=== PATIENT | male | born 1960 | race Caucasian/White ===

== ENCOUNTER 2018-01-07 14:30 | Outpatient (CLI) | payer MEDICARE ==
--- NOTE | 2018-01-07 16:09 | RAD ---
RIGHT KNEE FOUR VIEWS: 01/07/18 HISTORY: Joint pain. There are mild arthritic changes of the medial, lateral and patellofemoral compartments. No joint eff usion or fracture. IMPRESSION: Mild osteoarthritic changes of the knee. POS: ANGELITO
== END 2018-01-07 14:31 | disposition home or self-care (01) ==
LOC: NAV RAD 14:30
PROVIDERS: ATTEND Family Medicine
DX: M25.561 Pain in right knee (principal)

== ENCOUNTER 2019-09-02 12:20 | Outpatient (CLI) | payer MEDICARE ==
--- NOTE | 2019-09-02 12:43 | RAD ---
EXAM: Two views chest PROVIDED CLINICAL HISTORY: Shortness of breath COMPARISON: None FINDINGS: Cardiac silhouette and bronchovascular markings are accentuated by shallow depth of inspiration and p ortable technique of the study. No definite consolidation or pleural fluid is seen. No other interval change IMPRESSION: No acute cardiopulmonary process.
== END 2019-09-02 12:21 | disposition home or self-care (01) ==
LOC: NAV RAD 12:20
PROVIDERS: ATTEND Student in an Organized Health Care Education/Training Program
DX: R06.02 Shortness of breath (principal)
CPT/HCPCS: 71046

== ENCOUNTER 2019-09-27 15:16 | Outpatient (CLI) | payer MEDICARE ==
--- NOTE | 2019-09-27 15:39 | RAD ---
EXAM: 5 views of the cervical spine HISTORY: Neck pain COMPARISON: None FINDINGS: AP, lateral, flexion/extension, and open mouth odontoid views of the cervical spine shows n ormal height and alignment of the vertebral bodies and intervertebral discs without fracture or subluxation. Posterior facet arthrosis is seen in the upper cervical spine. No prevertebral soft tiss ue swelling is seen. Alignment is unchanged with flexion and extension. IMPRESSION: Mild degenerative changes of the cervical spine without acute osseous abnormality.
== END 2019-09-27 15:17 | disposition home or self-care (01) ==
LOC: NAV RAD 15:16
PROVIDERS: ATTEND Family Medicine
DX: M54.2 Cervicalgia (principal); G89.29 Other chronic pain; M47.812 Spondylosis without myelopathy or radiculopathy, cervical region
CPT/HCPCS: 72050

== ENCOUNTER 2019-12-10 20:29 | Emergency (ER) | payer MEDICARE ==
[2019-12-10 21:19] LABS: #Basophils 0.1 thou/uL (0.0-0.2); #Eosinphils 0.2 thou/uL (0.0-0.7); #Lymphocytes 1.6 thou/uL (1.20-3.40); #Monocytes 0.6 thou/uL (0.11-0.59); #Neutrophils 4.9 thou/uL (1.40-6.50); %Basophils 1.2 % (0.0-1.0); %Eosinophils 2.5 % (0.0-10.0); %Lymphocytes 22.1 % (21.0-51.0); %Monocytes 8.6 % (0.0-10.0); %Neutrophils 65.6 % (42.0-75.0); Hemoglobin 14.4 g/dL (14.0-18.0); Mean Corpuscular HGB CONC 31.6 g/dL (32.0-36.0); Mean Corpuscular Hemoglobin 30.1 pg (27.0-31.0); Mean Corpuscular Volume 95.2 fL (78.0-98.0); Mean Platelet Volume 7.5 fL (7.4-10.4); Platelet Count 190 thou/uL (130-400); RBC Distribution Width 11.7 % (11.5-14.5); Red Blood Cell (RBC) Count 4.79 mill/uL (4.70-6.10); White Blood Cell (WBC) Count 7.4 thou/uL (4.8-10.8)
--- NOTE | 2019-12-10 21:34 | RAD ---
Left foot 3 views HISTORY: Pain. FINDINGS: Lisfranc joint alignment is anatomic. Plantar arch is maintained. Soft tissue swelling is evident about the forefoot. Mild osteoarthritic changes throughout the foot. Old healed fracture of the fifth metatarsal. Enthesophyte arises from the plantar origin at the inferior aspect of the calcaneus. IMPRESSION : Soft tissue swelling. No acute osseous abnormalities are demonstrated. Old fifth metatarsal fracture. Plantar heel spur.
[2019-12-10 21:40] LABS: ALT (SGPT) 29 U/L (8-55); AST (SGOT) 22 U/L (5-34); Albumin 4.1 g/dL (3.5-5.0); Alkaline Phosphatase 67 U/L (40-110); Anion Gap 14 mmol/L (10-20); BUN (Urea Nitrogen) 14 mg/dL (8.4-25.7); Bilirubin, Total 0.4 mg/dL (0.2-1.2); CRP (Inflammatory) Less than 0.50 mg/dL (= or < 0.5); Calc. Creatinine Clearance 0 mL/min (70-130); Calcium 9.4 mg/dL (7.8-10.44); Carbon Dioxide 29 mmol/L (22-29); Chloride 100 mmol/L (98-107); Estimated GFR-MDRD Greater than 90; Globulin 2.9 g/dL (2.4-3.5); Glucose 111 mg/dL (70-105); Sodium 139 mmol/L (136-145)
== END 2019-12-10 22:00 | disposition home or self-care (01) ==
LOC: NAV ERS 20:29
DX: M79.672 Pain in left foot (principal); G89.29 Other chronic pain; G47.00 Insomnia, unspecified; G47.30 Sleep apnea, unspecified; E78.5 Hyperlipidemia, unspecified; I10 Essential (primary) hypertension; F32.9 Major depressive disorder, single episode, unspecified; E66.9 Obesity, unspecified; Z79.82 Long term (current) use of aspirin; Z79.891 Long term (current) use of opiate analgesic; Z79.899 Other long term (current) drug therapy
CPT/HCPCS: 80053; 83605; 85025; 86140; 87040

== ENCOUNTER 2020-01-27 17:00 | Inpatient (IN) | payer MEDICARE ==
[2020-01-27 17:17] VITALS: BMI 41.0
[2020-01-27] MEDS ORDERED: Ventolin HFA Inhaler 60 PUFF INHALER INH PRN (17:23)
[2020-01-27] MEDS ORDERED: Ondansetron ODT 4 MG TAB PO PRN (17:25)
[2020-01-27] MEDS: HYDROcodone/Acetaminophen 7.5/325 mg Tablet PO PRN (18:06)
[2020-01-27] MEDS: Atorvastatin Calcium 10 MG TAB PO SCH (20:26)
[2020-01-27] MEDS: Citalopram 20 MG TAB PO SCH (20:26)
[2020-01-27] MEDS: Tamsulosin HCl 0.4 MG CAP PO SCH (20:26)
--- NOTE | 2020-01-27 22:52 | HP ---
CHIEF COMPLAINT: Deconditioning. HISTORY OF PRESENT ILLNESS: The patient is a 59-year-old male, who was transferred to [facility] for rehabilitation following a hospital stay for deconditioning and falls. The patient has known cervical spinal stenosis and is scheduled for surgery with Dr. Randhawa on February 10. The patient has a past medical history of opioid dependence, hyperlipidemia, depression, hypertension, obstructive sleep apnea, and obesity hypoventilation syndrome. The patient was examined by Neurosurgery in the hospital stay and they opted to proceed with surgery as scheduled on the , we will move it up to resume. The patient has been having worsening pain and states that it is difficult to move this head. His family was not comfortable taking care of him at home as he was falling multiple times and will become confused, notes the pain was increased. PAST MEDICAL HISTORY: Spinal stenosis, opioid dependence, hypertension, depression, hyperlipidemia, ELODIA, GERD, and osteoarthritis. ALLERGIES: NO KNOWN DRUG ALLERGIES. MEDICATIONS: 1. Simvastatin 20 mg p.o. at bedtime. 2. Ventolin HFA 2 puffs q.4 hours as needed. 3. Celexa 20 mg, take two tablets p.o. daily. 4. Loomis 7.5/325 one p.o. t.i.d. 5. Omeprazole 40 mg p.o. daily. 6. Diclofenac 75 mg p.o. b.i.d. 7. Tamsulosin 0.4 mg p.o. daily. 8. Metoprolol ER 50 mg p.o. daily. 9. Losartan 25 mg p.o. daily. 10. Aspirin 81 mg p.o. daily. PAST SURGICAL HISTORY: Cholecystectomy, knee arthroscopy, and back surgery. FAMILY HISTORY: Mother with diabetes. SOCIAL HISTORY: The patient is a former smoker. He drinks alcohol on occasion. REVIEW OF SYSTEMS: GENERAL: Negative for fever and chills. EYES: Negative for vision changes or eye pain. HEENT: Negative for sore throat, rhinorrhea, or nasal congestion. LUNGS: Negative for cough and wheezing. CARDIOVASCULAR: Negative for chest pain, palpitations, or orthopnea. GI: Negative for nausea, vomiting, or diarrhea. : Negative for dysuria and polyuria. The patient has had some episodes of incontinence over the past month. MUSCULOSKELETAL: Positive for neck and back pain with pain radiating down the arms and weakness of the upper extremities. EXTREMITIES: The patient has had increased lower extremity edema. SKIN: The patient has had some dry skin on the face, but no other rashes or lesions noted. NEUROLOGIC: The patient endorses tingling and numbness in the upper extremities. No syncope. PSYCHIATRIC: The patient denies anxiety, but endorses depression. PHYSICAL EXAMINATION: VITAL SIGNS: Temperature 98.5, pulse 74, respiration rate 20, O2 saturation 92% on room air, and blood pressure 130/60. GENERAL: The patient is awake, alert, and oriented, and in no acute distress. EYES: Pupils are equal, round, and reactive to light and accommodation. Extraocular muscles intact. HEENT: Oropharynx and nasopharynx without erythema or exudate. NECK: Supple without lymphadenopathy, thyromegaly, or bruits. CARDIOVASCULAR: Regular rate and rhythm without murmurs, gallops, or rubs. LUNGS: Clear to auscultation bilaterally without wheezing or rhonchi. ABDOMEN: Soft, nontender, and nondistended. Bowel sounds present. EXTREMITIES: No clubbing or cyanosis. The patient has 1 to 2+ pitting edema in bilateral lower extremities up to the knees. NEUROLOGIC: Cranial nerves 2 through 12 are grossly intact. Left upper extremity strength is a 4/5. Right upper extremity 5/5. Bilateral lower extremities are 5/5. PSYCHIATRIC: The patient displays somewhat flat affect with poor eye contact. ASSESSMENT AND PLAN: 1. Generalized deconditioning: The patient will have PT and OT work with him. 2. Cervical stenosis: The patient has an upper extremity weakness, just generalized weakness as he has not been moving around much at home. We will proceed with therapy to try to help him gain strength before surgery scheduled for February 10. 3. Hypertension: Continue current medications and adjust as needed. 4. Gastroesophageal reflux disease. Continue proton pump inhibitors. 5. Depression. Continue citalopram. 6. Hyperlipidemia. Continue simvastatin. 7. Obstructive sleep apnea with obesity hypoventilation syndrome: The patient has a followup appointment with Dr. Swartz we think next week. We will clarify this with the patient's family and help to arrange for transportation. 8. Chronic venous stasis: Monitor lower extremity edema. This does appear to be new and the patient may need a dose of Lasix. 9. We will get a CBC and a CMP in the morning. 10. Chronic pain: I am restarting the patient's opioids and monitor for constipation. Job ID: [id number]
[2020-01-28 05:54] LABS: #Basophils 0.1 thou/uL (0.0-0.2); #Eosinphils 0.3 thou/uL (0.0-0.7); #Lymphocytes 1.8 thou/uL (1.20-3.40); #Monocytes 0.6 thou/uL (0.11-0.59); #Neutrophils 2.9 thou/uL (1.40-6.50); %Basophils 2.3 % (0.0-1.0); %Eosinophils 4.5 % (0.0-10.0); %Lymphocytes 32.4 % (21.0-51.0); %Monocytes 9.8 % (0.0-10.0); Hemoglobin 12.4 g/dL (14.0-18.0); Mean Corpuscular HGB CONC 30.8 g/dL (32.0-36.0); Mean Corpuscular Hemoglobin 29.2 pg (27.0-31.0); Mean Corpuscular Volume 94.7 fL (78.0-98.0); Mean Platelet Volume 8.4 fL (7.4-10.4); Platelet Count 169 thou/uL (130-400); RBC Distribution Width 11.7 % (11.5-14.5); Red Blood Cell (RBC) Count 4.24 mill/uL (4.70-6.10); White Blood Cell (WBC) Count 5.7 thou/uL (4.8-10.8)
[2020-01-28 06:10] LABS: ALT (SGPT) 29 U/L (8-55); AST (SGOT) 28 U/L (5-34); Albumin 3.6 g/dL (3.5-5.0); Alkaline Phosphatase 61 U/L (40-110); Anion Gap 12 mmol/L (10-20); BUN (Urea Nitrogen) 14 mg/dL (8.4-25.7); Bilirubin, Total 0.3 mg/dL (0.2-1.2); Calc. Creatinine Clearance 192 mL/min (70-130); Calcium 9.1 mg/dL (7.8-10.44); Carbon Dioxide 33 mmol/L (22-29); Chloride 97 mmol/L (98-107); Estimated GFR-MDRD Greater than 90; Globulin 2.6 g/dL (2.4-3.5); Glucose 98 mg/dL (70-105); Potassium 4.2 mmol/L (3.5-5.1); Protein, Total 6.2 g/dL (6.0-8.3); Sodium 138 mmol/L (136-145)
[2020-01-28] MEDS: Polyethylene Glycol 3350 17 GM Packet PO SCH (08:03)
[2020-01-28] MEDS: Citalopram 20 MG TAB PO SCH ×2 (08:04→20:22)
[2020-01-28] MEDS: HYDROcodone/Acetaminophen 7.5/325 mg Tablet PO PRN (08:04)
[2020-01-28] MEDS: Losartan 25 MG TAB PO SCH (08:06)
[2020-01-28] MEDS: Aspirin 81 mg Enteric Coated Tablet PO SCH (08:06)
--- NOTE | 2020-01-28 09:27 | PRG ---
DATE OF SERVICE: 01/28/2020 SUBJECTIVE: The patient is a 59-year-old male who is at [facility] for rehabilitation following hospital stay at [facility] for weakness. The patient has known cervical stenosis, and he has been having increasing pain in his neck and is scheduled for surgery on February 10. The patient is sitting up in a recliner, and states that he did not sleep at all last night because we took away his BiPAP. I tried to explain that the BiPAP machine was only able to be used in [place] and the doctors taking care of him in [place] did not think that he needed his BiPAP on discharge. The [facility] is not capable of providing him with BiPAP. He is supposed to have an appointment with Dr. Swartz, we think next week. The patient apparently slept in the recliner all night, because if he stays even at home, he feels like he cannot breathe when he lies flat. The night nurse apparently applied oxygen up to 4 L last night per the patient's request. OBJECTIVE: VITAL SIGNS: Temperature 98.3, pulse 80, respiratory rate 20, O2 saturation 96% on room air, blood pressure 114/52. GENERAL: The patient is awake and alert, in no acute distress. CARDIOVASCULAR: Regular rate and rhythm without murmurs, gallops, or rubs. LUNGS: Clear to auscultation bilaterally without wheezing or rhonchi. ABDOMEN: Soft, nontender, nondistended. Bowel sounds present. EXTREMITIES: There is 1+ pitting edema in bilateral lower extremities. PSYCHIATRIC: The patient displays appropriate mood and affect. LABORATORY DATA: CBC: WBCs 5.7, hemoglobin 12.4, hematocrit 40.1, platelet count 169. CMP: Sodium 138, potassium 4.2, chloride 97, bicarb 33, BUN 14, creatinine 0.75, glucose 98, calcium 9.1, total bilirubin 0.3, AST 28, ALT 29, alkaline phosphatase 61, total protein 6.2, albumin 3.6. ASSESSMENT AND PLAN: 1. Cervical spinal stenosis with degenerative disk disease. The patient is scheduled for surgery on February 10. We will continue Otis for pain control. The patient will begin working with PT and OT to try to help improve strength. 2. Obstructive sleep apnea with obesity hypoventilation syndrome. The patient's O2 sats have been stable. I tried to explain to the patient that we should not use oxygen if we do not need oxygen as this can cause its own set of problems. The patient's day nurse is going to pass along that recommendation to the night team. 3. Hypertension, well controlled. 4. Generalized deconditioning. Therapy as mentioned above. 5. Insomnia. We are trying to avoid any sedating agents like Ambien as this can affect the patient's breathing at night. 6. Depression. Continue selective serotonin reuptake inhibitors. Job ID: [id number]
[2020-01-28] MEDS: Atorvastatin Calcium 10 MG TAB PO SCH (20:22)
[2020-01-28] MEDS: Tamsulosin HCl 0.4 MG CAP PO SCH (20:22)
[2020-01-29] MEDS: HYDROcodone/Acetaminophen 7.5/325 mg Tablet PO PRN ×3 (00:16→20:34)
[2020-01-29] MEDS: Losartan 25 MG TAB PO SCH (09:42)
[2020-01-29] MEDS: Aspirin 81 mg Enteric Coated Tablet PO SCH (09:43)
[2020-01-29] MEDS: Citalopram 20 MG TAB PO SCH ×2 (09:43→20:34)
[2020-01-29] MEDS: Polyethylene Glycol 3350 17 GM Packet PO SCH (09:43)
[2020-01-29] MEDS ORDERED: Melatonin 3 MG TAB PO PRN (14:54)
--- NOTE | 2020-01-29 15:12 | PRG ---
DATE OF SERVICE: 01/29/2020 SUBJECTIVE: The patient is a 59-year-old male, undergoing rehabilitation following multiple falls. The patient has a history of cervical stenosis along with cervical disk disease and is due to have surgery on February 10. The patient states that he continues to have difficulty sleeping at night. He was able to work with Therapy yesterday and states that he was able ambulate around the nurses' station. OBJECTIVE: VITAL SIGNS: Temperature 98.3, pulse 80, respiration rate 23, O2 saturation 96% on room air, blood pressure 133/59. GENERAL: The patient is awake, alert, oriented, in no acute distress. CARDIOVASCULAR: Regular rate and rhythm without murmurs, gallops, or rubs. LUNGS: Clear to auscultation bilaterally without wheezing or rhonchi. ABDOMEN: Soft, nontender to palpation. EXTREMITIES: There is no clubbing or cyanosis, but the patient does have stable 1+ edema in bilateral lower extremities. PSYCHIATRIC: The patient displays appropriate mood and affect. ASSESSMENT AND PLAN: 1. Cervical spinal stenosis with cervical disk disease: The patient will continue PT and OT as he has been getting some weakness and repeated falls at home. He is scheduled for surgery on February 10. 2. Hypertension: Blood pressure is controlled. 3. Generalized weakness and deconditioning: Therapy as mentioned above. 4. Osteoarthritis: We will stop the patient's Voltaren, as he will have to be off it for about 10 days prior to surgery. This medication is not able to be obtained here anyway. 5. Insomnia: We will add melatonin at night to see if this helps. We are trying to limit anything that could decrease his respiratory drive. 6. Obstructive sleep apnea with obesity hypoventilation: My understanding, the patient has a followup appointment with Dr. Swartz next week. We will need to clarify this with the nursing staff and help to arrange for him to get to that appointment, if that is the case. Job ID: [id number]
[2020-01-29] MEDS: Tamsulosin HCl 0.4 MG CAP PO SCH (20:34)
[2020-01-29] MEDS: Atorvastatin Calcium 10 MG TAB PO SCH (20:34)
[2020-01-30] MEDS: Citalopram 20 MG TAB PO SCH ×2 (08:57→20:37)
[2020-01-30] MEDS: HYDROcodone/Acetaminophen 7.5/325 mg Tablet PO PRN ×2 (08:57→16:28)
[2020-01-30] MEDS: Aspirin 81 mg Enteric Coated Tablet PO SCH (08:57)
[2020-01-30] MEDS: Losartan 25 MG TAB PO SCH (08:57)
[2020-01-30] MEDS: Polyethylene Glycol 3350 17 GM Packet PO SCH (09:02)
[2020-01-30] MEDS: Atorvastatin Calcium 10 MG TAB PO SCH (20:37)
[2020-01-30] MEDS: Tamsulosin HCl 0.4 MG CAP PO SCH (20:38)
[2020-01-31] MEDS: HYDROcodone/Acetaminophen 7.5/325 mg Tablet PO PRN ×3 (00:59→23:02)
[2020-01-31] MEDS: Aspirin 81 mg Enteric Coated Tablet PO SCH (08:46)
[2020-01-31] MEDS: Losartan 25 MG TAB PO SCH (08:46)
[2020-01-31] MEDS: Citalopram 20 MG TAB PO SCH ×2 (08:47→20:19)
[2020-01-31] MEDS: Polyethylene Glycol 3350 17 GM Packet PO SCH (08:48)
--- NOTE | 2020-01-31 18:19 | PRG ---
DATE OF SERVICE: 01/31/2020 SUBJECTIVE: The patient is a 59-year-old male, who is undergoing rehabilitation at [place] following multiple falls and weakness, requiring hospitalization in [place]. The patient is due to have back surgery with Dr. Randhawa on 02/10. The patient pretty much spends all of his day and night in the recliner, that is in his room, but after speaking with therapy staff, he is able to get up and ambulate fairly well when they work with him. The patient states that he was able to sleep a little bit better overnight. This morning, his primary concern is that the only thing on his breakfast tray was eggs and he needs more to eat than that, so the nurse brought him some cereal and applesauce. OBJECTIVE: VITAL SIGNS: Temp 98.1, pulse 74, respiration rate 18, O2 sat 94% on room air, and blood pressure 127/60. GENERAL: The patient is awake, alert, oriented, and in no acute distress. CARDIOVASCULAR: Regular rate and rhythm without murmurs, gallops or rubs. LUNGS: Clear to auscultation bilaterally without wheezing or rhonchi. ABDOMEN: Soft, nontender, and nondistended. Bowel sounds present. The patient is obese. EXTREMITIES: There is no clubbing or cyanosis. The patient does have 1+ pitting edema in bilateral lower extremities. PSYCHIATRIC: The patient displays appropriate mood and affect. ASSESSMENT AND PLAN: 1. Cervical spinal stenosis with cervical disk disease: The patient will continue therapy. I think there is a care plan meeting tomorrow, and if the patient is progressing well, he likely will be able to be discharged before surgery date. 2. Hypertension: Blood pressure is controlled. No change to medications. 3. Generalized weakness and deconditioning: Continue therapy as mentioned above. 4. Insomnia: Continue melatonin. 5. Obstructive sleep apnea with obesity hypoventilation. The patient is supposed to have a followup on Friday. We need to clarify this to make certain if the appointment is still valid as the patient's has told Dr. Swartz that he is in the hospital, but he is actually a skilled patient, who should be able to go to the appointment. Job ID: [id number]
[2020-01-31] MEDS: Atorvastatin Calcium 10 MG TAB PO SCH (20:19)
[2020-01-31] MEDS: Tamsulosin HCl 0.4 MG CAP PO SCH (20:19)
[2020-02-01] MEDS: HYDROcodone/Acetaminophen 7.5/325 mg Tablet PO PRN ×2 (08:18→15:32)
[2020-02-01] MEDS: Losartan 25 MG TAB PO SCH (08:19)
[2020-02-01] MEDS: Aspirin 81 mg Enteric Coated Tablet PO SCH (08:19)
[2020-02-01] MEDS: Citalopram 20 MG TAB PO SCH ×2 (08:20→21:22)
[2020-02-01] MEDS: Polyethylene Glycol 3350 17 GM Packet PO SCH (08:20)
--- NOTE | 2020-02-01 10:52 | PRG ---
DATE OF SERVICE: 02/01/2020 SUBJECTIVE: The patient is a 59-year-old male, undergoing rehabilitation at [facility] in preparation for a neck surgery. The patient states that he was able to sleep a little bit better last night, but it was intermittent. The patient states that this morning, he seems to have increased neck pain and he is due for pain pill. The patient continues to work with therapy. OBJECTIVE: VITAL SIGNS: Temperature 98.1, pulse 78, respiration rate 18, O2 saturation 92% on room air, blood pressure 133/76. GENERAL: The patient is awake, alert, oriented, in no acute distress. CARDIOVASCULAR: Regular rate and rhythm without murmurs, gallops, or rubs. LUNGS: Clear to auscultation bilaterally without wheezing or rhonchi. ABDOMEN: Soft, nontender, nondistended. Bowel sounds present. EXTREMITIES: There is no clubbing or cyanosis. The patient does have 1+ lower extremity edema to the knees, which is stable. PSYCHIATRIC: The patient displays an appropriate mood and affect. ASSESSMENT AND PLAN: 1. Cervical stenosis with cervical disk disease: The patient is scheduled for surgery on February 10. We will continue pain medications as currently prescribed. 2. Generalized weakness and deconditioning: Continue PT and OT. I do believe there is a care plan meeting today to discuss the patient's progress and whether he would be able to discharge home before surgery or wait till the . 3. Hypertension: Continue current medications. 4. Obstructive sleep apnea: We still have not received any orders from Dr. Swartz's office regarding settings for CPAP. 5. Osteoarthritis: Avoiding NSAIDs as we were about 10 days prior to surgery. Job ID: [id number]
[2020-02-01] MEDS: Atorvastatin Calcium 10 MG TAB PO SCH (21:22)
[2020-02-01] MEDS: Tamsulosin HCl 0.4 MG CAP PO SCH (21:22)
[2020-02-02] MEDS: Polyethylene Glycol 3350 17 GM Packet PO SCH (08:44)
[2020-02-02] MEDS: Aspirin 81 mg Enteric Coated Tablet PO SCH (08:45)
[2020-02-02] MEDS: Losartan 25 MG TAB PO SCH (08:45)
[2020-02-02] MEDS: Citalopram 20 MG TAB PO SCH ×2 (08:45→20:52)
[2020-02-02] MEDS: HYDROcodone/Acetaminophen 7.5/325 mg Tablet PO PRN ×2 (08:47→15:20)
--- NOTE | 2020-02-02 09:28 | PRG ---
DATE OF SERVICE: 02/02/2020 SUBJECTIVE: The patient is a 59-year-old male undergoing rehabilitation following hospital stay for repeated falls. The therapy staff plans to discharge the patient from their caseload on Friday. He will be moving closer to discharge at that time. The patient only required two doses of pain medication yesterday. OBJECTIVE: VITAL SIGNS: Temperature 97.4, pulse 73, respiration rate 16, O2 saturation 95% on room air, and blood pressure 141/78. GENERAL: The patient is awake, alert, oriented, in no acute distress. CARDIOVASCULAR: Regular rate and rhythm without murmurs, gallops, or rubs. LUNGS: Clear to auscultation bilaterally without wheezing or rhonchi. ABDOMEN: Soft, nontender, nondistended. Bowel sounds present. EXTREMITIES: There is no clubbing or cyanosis. The patient does have stable 1+ edema in bilateral lower extremities. PSYCHIATRIC: The patient displays appropriate mood and affect. ASSESSMENT AND PLAN: 1. Cervical stenosis with cervical disk disease: The patient will continue with therapy, but they do plan on discharging him from therapy on Friday. We will discuss with the patient about discharging from the hospital on Friday. I spoke with the patient's nurse who is going to contact the neurosurgeon's office today to make certain that we get whatever labs need to be done for the patient, anything else that we needs to do preop. 2. Obstructive sleep apnea: We received orders from the ironworker for CPAP. These orders were placed as an outpatient to try to get that approved. 3. Hypertension: Blood pressure stable. No change to medications. 4. Generalized deconditioning: The patient's strength has improved. The primary issue that we have now is he is impulsive and does not follow safety cues that had been repeatedly taught to the patient. 5. Osteoarthritis: Continue activity as tolerated. The patient is avoiding NSAIDs prior to surgery. 6. Disposition: Planning for discharge on Friday at this time. Job ID: [id number]
[2020-02-02] MEDS: Tamsulosin HCl 0.4 MG CAP PO SCH (20:52)
[2020-02-02] MEDS: Atorvastatin Calcium 10 MG TAB PO SCH (20:52)
[2020-02-03] MEDS: HYDROcodone/Acetaminophen 7.5/325 mg Tablet PO PRN ×2 (08:05→20:28)
[2020-02-03] MEDS: Citalopram 20 MG TAB PO SCH ×2 (08:07→20:29)
[2020-02-03] MEDS: Losartan 25 MG TAB PO SCH (08:07)
[2020-02-03] MEDS: Aspirin 81 mg Enteric Coated Tablet PO SCH (08:07)
[2020-02-03] MEDS: Polyethylene Glycol 3350 17 GM Packet PO SCH (08:08)
--- NOTE | 2020-02-03 08:34 | PRG ---
DATE OF SERVICE: 02/03/2020 SUBJECTIVE: The patient is a 59-year-old male, undergoing rehabilitation at [place]. The patient states that he does not sleep well overnight, states that he has had some hip pain. The patient also continues to have pain in his neck, and when therapy tried to get him to go down to the gym, he did not agree to this yesterday. OBJECTIVE: VITAL SIGNS: Temperature 96.8, pulse 68, respiratory rate 20, O2 sat 95% on room air, and blood pressure 148/60. GENERAL: The patient is awake, alert, oriented, in no acute distress. CARDIOVASCULAR: Regular rate and rhythm without murmurs, gallops or rubs. LUNGS: Clear to auscultation bilaterally without wheezing or rhonchi. ABDOMEN: Soft, obese, and nontender to palpation. EXTREMITIES: There is no clubbing or cyanosis. The patient does have 1+ bilateral lower extremity pitting edema. PSYCHIATRIC: The patient displays appropriate mood and affect. ASSESSMENT AND PLAN: 1. Cervical spinal stenosis with cervical disk disease: The patient will be discharged to physical therapy tomorrow, and therefore, discharged from the hospital tomorrow. Notes in the chart indicate that the hospital will contact him to set up preop appointment. 2. Hypertension, well controlled. 3. Chronic pain: We will refill the patient's [place] so that he can take it up on discharge. 4. Osteoarthritis: The patient is avoiding NSAIDs 10 days prior to surgery and aspirin is due to stop tomorrow. 5. Generalized deconditioning: The patient has had some benefit from therapy. He will be having next surgery next week and will likely transfer to inpatient rehab after the surgery. Job ID: [id number]
[2020-02-03] MEDS: Tamsulosin HCl 0.4 MG CAP PO SCH (20:29)
[2020-02-03] MEDS: Atorvastatin Calcium 10 MG TAB PO SCH (20:29)
[2020-02-04] MEDS: HYDROcodone/Acetaminophen 7.5/325 mg Tablet PO PRN ×2 (04:08→10:37)
--- NOTE | 2020-02-04 08:22 | DIS ---
DATE OF ADMISSION: 01/27/2020 DATE OF DISCHARGE: 02/04/2020 DISCHARGE DIAGNOSES: 1. Generalized deconditioning. 2. Cervical spinal stenosis. 3. Cervical disk disease. 4. Chronic pain. 5. Hypertension. 6. Hyperlipidemia. HOSPITAL COURSE: The patient is a 59-year-old male who was transferred to [place] for rehabilitation following hospital stay with repeated falls and weakness. The patient is scheduled to have neck surgery with Dr. Hamida Randhawa on 2019. The patient has been working with therapy. He does not necessarily follow the safety cues that therapy staff has worked to give him. He freely admits this. The patient had a fall last night because he tried to quickly move from the bathroom to the bed and I discussed the importance of him going slowly when changing positions and ambulating. He states he knows that he should, but he just does not do that. The patient has been contacted by [facility] in preparation for surgery next week. I reiterated that he will need a COVID test 5 days prior to surgery. He voiced understanding. DISCHARGE MEDICATIONS: 1. Villard 7.5/325 one p.o. t.i.d. p.r.n. pain. 2. Ventolin HFA two puffs q.4 hours p.r.n. shortness of breath or wheezing. 3. Aspirin has been stopped. 4. Simvastatin 20 mg p.o. at bedtime. 5. Citalopram 20 mg p.o. b.i.d. 6. Cozaar or losartan 25 mg p.o. daily. 7. Melatonin 9 mg p.o. at bedtime. 8. Metoprolol succinate 25 mg p.o. daily. 9. Omeprazole 40 mg p.o. daily. 10. Flomax 0.4 mg p.o. at bedtime. DISPOSITION: 1. The patient will be discharged home in stable condition. 2. Diet, heart healthy. 3. Activity, Ad lakia with fall precautions. 4. Follow up with myself in about 2 weeks. The patient is scheduled to have surgery next week. Job ID: [id number] [id number]
[2020-02-04] MEDS: Aspirin 81 mg Enteric Coated Tablet PO SCH (08:48)
[2020-02-04] MEDS: Polyethylene Glycol 3350 17 GM Packet PO SCH (08:48)
[2020-02-04] MEDS: Losartan 25 MG TAB PO SCH (08:48)
[2020-02-04] MEDS: Citalopram 20 MG TAB PO SCH (08:48)
[2020-02-04 11:54] VITALS: BP 146/77; TEMP 98
== END 2020-02-04 11:45 | disposition home or self-care (01) | DRG 552 ==
LOC: NAV ACUTE 17:00
PROVIDERS: ADMIT Family Medicine; ATTEND Family Medicine
DX: M48.02 Spinal stenosis, cervical region (principal); F11.20 Opioid dependence, uncomplicated; Z68.41 Body mass index [BMI] 40.0-44.9, adult; E66.2 Morbid (severe) obesity with alveolar hypoventilation; M50.30 Other cervical disc degeneration, unspecified cervical region; G89.29 Other chronic pain; E78.5 Hyperlipidemia, unspecified; I10 Essential (primary) hypertension; F32.9 Major depressive disorder, single episode, unspecified; K21.9 Gastro-esophageal reflux disease without esophagitis; M19.90 Unspecified osteoarthritis, unspecified site; I87.8 Other specified disorders of veins; G47.00 Insomnia, unspecified; Z90.49 Acquired absence of other specified parts of digestive tract
CPT/HCPCS: 80053; 85025

== ENCOUNTER 2020-03-09 15:02 | Outpatient (CLI) | payer MEDICARE ==
[2020-03-09 16:25] LABS: Anion Gap 18 mmol/L (10-20); BUN (Urea Nitrogen) 25 mg/dL (8.4-25.7); Calc. Creatinine Clearance 0 mL/min (70-130); Calcium 8.7 mg/dL (7.8-10.44); Carbon Dioxide 23 mmol/L (22-29); Chloride 108 mmol/L (98-107); Estimated GFR-MDRD 90; Glucose 84 mg/dL (70-105); Sodium 144 mmol/L (136-145)
== END 2020-03-09 15:03 | disposition home or self-care (01) ==
LOC: NAV LABSP 15:02
PROVIDERS: ATTEND Family Medicine
DX: I25.10 Atherosclerotic heart disease of native coronary artery without angina pectoris (principal); Z79.01 Long term (current) use of anticoagulants
CPT/HCPCS: 80048

== ENCOUNTER 2022-04-05 16:47 | Emergency (ER) | payer MEDICARE ==
[2022-04-05] MEDS ORDERED: Naproxen 500 MG TAB ONE (17:17)
== END 2022-04-05 17:23 | disposition home or self-care (01) ==
LOC: NAV ERS 16:47
DX: M70.22 Olecranon bursitis, left elbow (principal); E78.5 Hyperlipidemia, unspecified; I10 Essential (primary) hypertension; Z87.891 Personal history of nicotine dependence
CPT/HCPCS: 99283